=== PATIENT | female | born 1965 | race Two or more races ===

== ENCOUNTER 2018-09-08 11:38 | Emergency (ER) | payer SELFPAY ==
[~2018-09-08] VITALS: Ht 160 cm; Wt 88.9 kg
[~2018-09-08 11:38] MED LIST: IBUP-1484 PO; PAIN MED
--- NOTE | 2018-09-08 12:02 | NUR ---
PT CO OF VAGINAL PAIN AND SWELLING FOR 1 WEEK. PT STATES SHE APPLIED A "NEOSPORIN LIKE OINTMENT TO AREA". PT RESTING COMFORTABLE. AT BEDSIDE. AWAITING ORDERS
[2018-09-08 12:21] LABS: MICROSCOPIC NOT IND
[2018-09-08 12:28] LABS: CULTURE INDICATED? NO
[2018-09-08 12:30] VITALS: BP 163/94
--- NOTE | 2018-09-08 12:45 | NUR ---
TIFFANIE CART AND CHAIR SET UP.
[2018-09-08] MEDS ORDERED: CEFTRIAXONE 250 MG IM ONE (13:00)
[2018-09-08] MEDS ORDERED: FLUCONAZOLE 100 MG TABLET PO ONE (13:00)
[2018-09-08] MEDS ORDERED: AZITHROMYCIN 500 MG TABLET PO ONE (13:00)
[2018-09-08 13:07] LABS: CLUE CELLS NONE SEEN (NONE SEEN); WET PREP WBCS FEW (FEW)
[2018-09-08] MEDS ORDERED: AZITHROMYCIN 250 MG TABLET ONE (13:12)
[2018-09-08] MEDS ORDERED: CEFTRIAXONE 1,000 MG ONE (13:12)
[2018-09-08] MEDS ORDERED: FLUCONAZOLE 100 MG TABLET ONE (13:12)
--- NOTE | 2018-09-08 13:40 | NUR ---
Patient/Caregiver given discharge instructions and they have confirmed that they understand the instructions. Patient ambulatory with steady gait.
== END 2018-09-08 13:42 | disposition home or self-care (01) ==
LOC: ED 12:24
DX: N76.0 Acute vaginitis (principal); R10.2 Pelvic and perineal pain; I10 Essential (primary) hypertension; E11.65 Type 2 diabetes mellitus with hyperglycemia
CPT/HCPCS: 81003; 87210; 87491; 87591; 87808; 96372; 99283; J0696; 82962